=== PATIENT | male | born 1955 | race Caucasian/White ===

== ENCOUNTER 2016-07-14 07:34 | Day surgery (SDC) | payer OTHER ==
--- NOTE | ~2016-07-14 | EGD ---
EGD REPORT [facility] [address] [address] NAME: DESIRE VITALE : 51 STATUS : [place] [facility] PAT#: [id number] AGE: 61 ADM/REG DATE : 07/14/16 MR#: [id number] REPORT SERV DATE: 07/14/16 DICTATED BY: PRIYA OGDEN DATE: 07/14/16 REPORT STATUS : Draft TRANSCRIBED BY: [facility] DATE: 07/14/16 Endoscopy Center Patient Name: Desire Vitale Date of : 1955 Attending MD: PRIYA OGDEN MD Procedure Date No Time: 07/14/2016 Procedure: Colonoscopy Indications: High risk colon cancer surveillance: Personal history of colonic polyps, Last colonoscopy: 2013 Referring MD: Alicja IRWIN II Medicines: See the Anesthesia note for documentation of the administered medications Complications: No immediate complications. Procedure: Pre-Anesthesia Assessment: - ASA Grade Assessment: III - A patient with severe systemic disease. After I obtained informed consent, the scope was passed under direct vision. Throughout the procedure, the patient's blood pressure, pulse, and oxygen saturations were monitored continuously. The PCF [id number] was introduced through the anus and advanced to the ileocolonic anastomosis. The colonoscopy was performed without difficulty. The patient tolerated the procedure well. The quality of the bowel preparation was adequate. Findings: The perianal and digital rectal examinations were normal. Diverticula were found in the sigmoid colon. A sessile polyp was found in the transverse colon. The polyp was small in size. The polyp was removed with a cold biopsy forceps. Resection and retrieval were complete. A sessile polyp was found in the transverse colon. The polyp was 10 mm in size. The polyp was removed with a hot snare. Resection and retrieval were complete. A sessile polyp was found in the descending colon. The polyp was small in size. The polyp was removed with a cold biopsy forceps. Resection and retrieval were complete. A sessile polyp was found in the descending colon. The polyp was 10 mm in size. The polyp was removed with a hot snare. Resection and retrieval were complete. Impression: - Diverticulosis in the sigmoid colon. - One small polyp in the transverse colon. Resected and retrieved. - One 10 mm polyp in the transverse colon. Resected and EGD REPORT [place] [address] [facility] [place]. [address] NAME: DESIRE VITALE : [birth year] STATUS : REG [facility]#: [id number] AGE: 61 ADM/REG DATE : 07/14/16 MR#: [id number] REPORT SERV DATE: 07/14/16 DICTATED BY: PRIYA OGDEN DATE: 07/14/16 REPORT STATUS : Draft TRANSCRIBED BY: [facility] DATE: 07/14/16 retrieved. - One small polyp in the descending colon. Resected and retrieved. - One 10 mm polyp in the descending colon. Resected and retrieved. Recommendation: - Patient has a contact number available for emergencies. The signs and symptoms of potential delayed complications were discussed with the patient. Return to normal activities tomorrow. Written discharge instructions were provided to the patient. - Regular diet. - Continue present medications. - Repeat colonoscopy in 3 years for surveillance. - FOR YOUR BIOPSY RESULTS: Please go to [email or web address] and register to receive your results via the portal. Your biopsy results will be posted there in about 7 to 10 days. IF you do not see result in 10 days, call office. Procedure Code(s): --- Professional --- 86728, Colonoscopy, flexible, proximal to splenic flexure; with removal of tumor(s), polyp(s), or other lesion(s) by snare technique 17956, 59, Colonoscopy, flexible, proximal to splenic flexure; with biopsy, single or multiple Diagnosis Code(s): --- Professional --- K57.30, Diverticulosis of large intestine without perforation or abscess without bleeding D12.4, Benign neoplasm of descending colon D12.3, Benign neoplasm of transverse colon Z86.010, Personal history of colonic polyps CPT copyright 2013 [employer]. All rights reserved. The codes documented in this report are preliminary and upon regulator inspector review may be revised to meet current compliance requirements. Priya Ogden MD PRIYA OGDEN MD 07/14/2016 9:23 AM This report has been signed electronically. Number of Addenda: 0 EGD REPORT [address] [facility] [address] NAME: DESIRE VITALE : [birth year] [place]US : [place] [facility] PAT#: [id number] AGE: 61 ADM/REG DATE : 07/14/16 MR#: [id number] REPORT SERV DATE: 07/14/16 DICTATED BY: PRIYA OGDEN DATE: 07/14/16 REPORT STATUS : Draft TRANSCRIBED BY: [employer] DATE: 07/14/16 Note Initiated On: 07/14/2016 8:55 AM Scope Withdrawal Time 0 hours 13 minutes 35 seconds
[~2016-07-14 07:34] MED LIST: ADVAIR100 INH; ADVAIR250 INH; AMB10 PO; ASAB PO; BEN25 PO; COZAAR100 MG PO; ELIQUIS 5 MG TAB5 MG PO; HYDROCHLOROT25 MG PO; KLOR-CON 1010 MEQ PO; KLOR-CON M1010 MEQ PO; LAN125 PO; LOP25 PO; MICROZIDE PO; NASONEX NAS; NORCO1 TA1 PO; NORV10 PO; NORV5 PO; PRINZIDE1 TAB PO; PROAIR HFA INH; SPIRIVA INH; TIKOSYN 500 M500 MCG PO; TRANDAT100 PO; TUMSROLL PO; ULTRAM50 PO; VENTOLIN HFA INH; XOPENEX HFA INH; ZESTORETIC1 TAB PO
[2016-11-14] MEDS ORDERED: AMB10 PO (16:59)
[2016-11-14] MEDS ORDERED: TUMSROLL PO (17:00)
[2016-11-16] MEDS ORDERED: TOPXL50 PO (08:49)
[2016-11-16] MEDS ORDERED: IMDUR30 PO (08:49)
[2016-11-16] MEDS ORDERED: LIPITOR40 (08:51)
== END 2016-07-14 23:59 | disposition home health service (06) ==
LOC: DMU 07:34
PROVIDERS: Internal Medicine Gastroenterology
PROC: 0DBL8ZX Excision of Transverse Colon, Via Natural or Artificial Opening Endoscopic, Diagnostic (ICD-10-PCS; 2016-07-14)
PROC: 0DBM8ZZ Excision of Descending Colon, Via Natural or Artificial Opening Endoscopic (ICD-10-PCS; 2016-07-14)
PROC: 0DBL8ZZ Excision of Transverse Colon, Via Natural or Artificial Opening Endoscopic (ICD-10-PCS; 2016-07-14)
PROC: 0DBM8ZX Excision of Descending Colon, Via Natural or Artificial Opening Endoscopic, Diagnostic (ICD-10-PCS; principal; 2016-07-14 09:30)
DX: Z12.11 Encounter for screening for malignant neoplasm of colon (principal); D12.4 Benign neoplasm of descending colon; D12.3 Benign neoplasm of transverse colon; J44.9 Chronic obstructive pulmonary disease, unspecified; K57.30 Diverticulosis of large intestine without perforation or abscess without bleeding; I48.91 Unspecified atrial fibrillation; I10 Essential (primary) hypertension; Z86.010 Personal history of colon polyps; Z88.2 Allergy status to sulfonamides; Z79.82 Long term (current) use of aspirin; Z79.899 Other long term (current) drug therapy; Z87.891 Personal history of nicotine dependence; Z90.49 Acquired absence of other specified parts of digestive tract; Z98.890 Other specified postprocedural states
CPT/HCPCS: 88305

== ENCOUNTER 2016-07-21 16:00 | Observation (INO) | payer OTHER ==
--- NOTE | ~2016-07-21 | CN ---
Consultation Report [facility] [address] [place]. [address] NAME: DESIRE VITALE : 51 STATUS : ADM Elisha PAT#: [id number] AGE: 61 ADM/REG DATE : 07/21/16 MR#: [id number] REPORT SERV DATE: 07/22/16 DICTATED BY: PRESLEY DELCID DATE: 07/22/16 REPORT STATUS : Draft TRANSCRIBED BY: MODL DATE: 07/22/16 INPATIENT CONSULT NOTE DATE OF CONSULTATION: 07/22/2016 REASON FOR CONSULTATION: Bright red blood per rectum. HISTORY OF PRESENT ILLNESS: Mr. Vitale is a very pleasant 61-year-old male with no significant past medical history aside from atrial fibrillation, on Eliquis for anticoagulation, who underwent colonoscopy approximately one week ago and had resection of four polyps. The patient now presented to the emergency room with complaints of black stool that started on the day of admission. After his colonoscopy, he had had one episode of bloody stool, but then had normal brown stools for several days. Then on the day prior to admission, the patient noted he had a small amount of stringy red blood clot with his bowel movements and then on the day of consultation, the patient noted that he had dark black stool. No chest pain or shortness of breath. No presyncopal symptoms. No abdominal pain. No indigestion or GERD type symptoms. The patient presented to the emergency department for further evaluation and was noted to be heme positive with dark stools. He was also noted to have a hemoglobin of 16. REVIEW OF SYSTEMS: All systems reviewed and were negative aside from what was mentioned in history of present illness. PAST MEDICAL HISTORY: Includes: 1. Atrial fibrillation, on Eliquis and aspirin. 2. Hypertension. 3. COPD. 4. History of AAA. FAMILY HISTORY: The patient has no family history of GI related malignancy. SOCIAL HISTORY: The patient denies alcohol, tobacco, or illicit drug use. ALLERGIES: THE PATIENT HAS ALLERGIES TO SULFA MEDICATIONS. HOME MEDICATIONS: Include: 1. Tylenol. 2. Albuterol. 3. Norvasc. 4. Eliquis. 5. Aspirin 81 mg p.o. daily. 6. Tikosyn. 7. Advair. Consultation Report [facility] [address] [place]. [address] NAME: DESIRE VITALE : 51 STATUS : ADM Elisha PAT#: [id number] AGE: 61 ADM/REG DATE : 07/21/16 MR#: [id number] REPORT SERV DATE: 07/22/16 DICTATED BY: PRESLEY DELCID DATE: 07/22/16 REPORT STATUS : Draft TRANSCRIBED BY: YONI DATE: 07/22/16 8. Lopressor. 9. Potassium chloride. 10.Spiriva. PHYSICAL EXAMINATION: VITAL SIGNS: Most recent vital signs include a temperature of 98.3, pulse rate of 67, blood pressure is 162/99, saturating 94% on room air. GENERAL INSPECTION: Reveals an older male, lying in bed, in no apparent distress. HEENT: Head is normocephalic, atraumatic with normal inspection of the oral mucosa and posterior pharynx. Sclerae nonicteric. Pupils are equal and round. NECK: Supple without lymphadenopathy. HEART: Rate is regular with normal S1, S2. LUNGS: Sounds clear to auscultation bilaterally without wheezes, rales, or rhonchi. ABDOMEN: Soft, nontender, nondistended with normoactive bowel sounds. EXTREMITIES: The patient has no cyanosis, clubbing, or edema. SKIN: No jaundice or rash. NEURO: No gross motor deficits. He is alert and oriented. Mood and affect are appropriate. Judgment appears to be intact. LABORATORY DATA: Most recent laboratory results demonstrate a hemoglobin of 15.3 and a hematocrit of 45. Electrolyte panel shows normal BUN of 11, creatinine of 1.1. Normal electrolytes. No pertinent imaging to review. ASSESSMENT AND PLAN: Mr. Vitale is a very pleasant 61-year-old male with past medical history significant only for atrial fibrillation, on Eliquis and aspirin, who presented to the emergency department one week after colonoscopy with complaints of black stools. The patient's hemoglobin has been stable with no suggestion of significant GI bleeding. The patient's BUN is normal which argues against a significant amount of upper GI bleeding. Also, the patient's hemoglobin has been stable and is actually normal, and has fluctuated between 15 and 16. No need for upper endoscopic evaluation at this time, we would continue to monitor; however, if the patient continues to have a stable hemoglobin without signs of significant decrease over a 24 hour. The patient can be discharged to home and have follow up with either his primary care physician or his primary gastrologist, Dr. Oswaldo Ogden within the next one to two weeks to recheck his blood count again. Thank you very much for this interesting consult and allowing me to participate in Mr. Vitale's care. Please call with any questions or concerns or if the patient has suggestion of significant overt bleeding with drop in hemoglobin prior to his discharge. YOUNG/YONI Presley [place] Consultation Report [facility] [address] [facility] [place]. [address] NAME: DESIRE VITALE : 51 STATUS : ADM Elisha PAT#: [id number] AGE: 61 ADM/REG DATE : 07/21/16 MR#: [id number] REPORT SERV DATE: 07/22/16 DICTATED BY: PRESLEY DELCID DATE: 07/22/16 REPORT STATUS : Draft TRANSCRIBED BY: YONI DATE: 07/22/16 MD Anjum / [id number] CC: MD Alicja Holden
--- NOTE | ~2016-07-21 | DS ---
Discharge Summary [place] [id number] [facility] [place]. [address] NAME: DESIRE VITALE : 51 STATUS : DIS Elisha PAT#: [id number] AGE: 61 ADM/REG DATE : 07/21/16 MR#: [id number] REPORT SERV DATE: 07/22/16 DICTATED BY: MADDIE BLACKWELL DATE: 07/22/16 REPORT STATUS : Draft TRANSCRIBED BY: MODL DATE: 07/22/16 ADMISSION DATE: 07/21/2016 DISCHARGE DATE: 07/22/2016 REASON FOR ADMISSION: Black stool. HISTORY OF PRESENT ILLNESS: Please refer to Dr. Rojas' history and physical dated 07/21/2016 for complete details regarding the patient's admission. In brief, the patient was admitted to the Hospitalist Service for concern for post polypectomy and acute blood loss anemia. HOSPITAL COURSE: The patient had an uncomplicated hospital course. The patient had a colonoscopy with removal of a polyp by Dr. Ogden approximately a week ago. He presented with a tarry stool. Hemoglobin was checked and it was around 16. He was admitted to the Hospitalist Service under observation. Dr. Valero was consulted, recommended just checking serial H and Hs, and if it is stable, he is okay to go home, did not warrant any further scopes. The patient's hemoglobin was checked several times and had been stable at around 16. He is stable for discharge. DISCHARGE DIAGNOSES: 1. Postpolypectomy bleed, now resolved with acute blood loss. 2. Chronic obstructive pulmonary disease without exacerbation. 3. Hypertension. 4. Chronic atrial fibrillation, on chronic anticoagulation. 5. History of abdominal aortic aneurysm. PROCEDURES: Include consultation with Dr. aVlero. DISCHARGE MEDICATIONS: Include Tylenol p.r.n., albuterol p.r.n., Norvasc 10 mg daily, Eliquis 5 mg twice a day, aspirin 81 mg daily, Tikosyn 500 mg twice a day, Advair 250/50 one puff twice a day, Lopressor 25 mg twice a day, Klor-Con 10 mEq daily, and Spiriva daily. FOLLOWUP: The patient will follow up with Dr. Ogden as scheduled and Dr. Olsen. DICTATED BY: MD AISHWARYA Holden/YONI Maddie Blackwell MD / [id number] Discharge Summary [place] [address] [facility] [place] [address] NAME: DESIRE VITALE : 51 STATUS : DIS Elisha PAT#: [id number] AGE: 61 ADM/REG DATE : 07/21/16 MR#: [id number] REPORT SERV DATE: 07/22/16 DICTATED BY: MADDIE BLACKWELL DATE: 07/22/16 REPORT STATUS : Draft TRANSCRIBED BY: YONI DATE: 07/22/16 CC: MD lAicja Holden M.D.
--- NOTE | ~2016-07-21 | HP ---
History And Physical [place] [address] [place]. [address] NAME: DESIRE VITALE : 51 STATUS : ADM Elisha PAT#: [id number] AGE: 61 ADM/REG DATE : 07/21/16 MR#: [id number] REPORT SERV DATE: 07/21/16 DICTATED BY: MARSHALL MORIN DATE: 07/21/16 REPORT STATUS : Draft TRANSCRIBED BY: YONI DATE: 07/21/16 DATE OF ADMISSION: 07/21/2016 CHIEF COMPLAINT: Black stools. HISTORY OF PRESENT ILLNESS: This is a 61-year-old man with past medical history of chronic atrial fibrillation on anticoagulation with a recent polypectomy done about a week ago, comes in complaining of black stools that started on the day of admission. The patient does report some bright red blood per rectum when he wiped on the day prior to admission. The patient denies any abdominal pain, nausea, vomiting, diarrhea, hemoptysis, orthopnea, lower extremity swelling, slurred speech, localized weakness, dizziness, headache, fever, chills, or cough. The patient was evaluated in the emergency room, heme positive. A hemoglobin of 16. Hospitalist called for further inpatient management. ALLERGIES: SULFA. HOME MEDICATIONS: 1. Tylenol 1000 mg p.o. daily p.r.n. 2. Albuterol 1 puff inhaled t.i.d. daily p.r.n. 3. Norvasc 10 mg p.o. daily. 4. Eliquis 5 mg p.o. b.i.d. 5. Aspirin 81 mg p.o. daily. 6. Tikosyn 500 mcg p.o. b.i.d. 7. Advair Diskus 250/50 one puff b.i.d. 8. Lopressor 25 mg p.o. b.i.d. 9. Klor-Con 10 mEq p.o. daily. 10.Spiriva capsule inhaled daily. PAST MEDICAL HISTORY: 1. Significant for chronic atrial fibrillation on Eliquis, aspirin, and Tikosyn for rate control as well as Lopressor. 2. Hypertension. 3. COPD. 4. History of AAA. SOCIAL HISTORY: Denies any alcohol, tobacco, or illicit drug use. FAMILY HISTORY: Noncontributory. REVIEW OF SYSTEMS: Twelve point system reviewed, otherwise negative per HPI. PHYSICAL EXAMINATION: VITAL SIGNS: Temperature 97.2, heart rate 81, blood pressure 133/85, respiratory rate 16, and O2 saturation 95 on room air. GENERAL: No acute distress. History And Physical [address] [address] NAME: DESIRE VITALE : 51 STATUS : ADM Elisha PAT#: [id number] AGE: 61 ADM/REG DATE : 07/21/16 MR#: [id number] REPORT SERV DATE: 07/21/16 DICTATED BY: MARSHALL MORIN DATE: 07/21/16 REPORT STATUS : Draft TRANSCRIBED BY: YONI DATE: 07/21/16 HEENT: EOMI, PERRLA, nonicteric sclerae, nonerythematous pharynx. NECK: Supple. No JVD. No lymphadenopathy. RESPIRATORY: Clear to auscultation bilaterally. No wheezes, rhonchi, or crackles. CARDIOVASCULAR: Regular rate and rhythm. No murmurs, rubs, or gallops. ABDOMEN: Bowel sounds positive. Soft, nontender, and nondistended. No rebound or guarding. EXTREMITIES: No edema or cyanosis. NEUROLOGICAL: Nonfocal. LABORATORY DATA: WBC of 10.7, hemoglobin 16, hematocrit 47, and platelets 266. INR 1.2. Sodium 142, potassium 3.8, chloride 107, bicarb 30, BUN 13, and creatinine 1.18. ASSESSMENT: 1. Post polypectomy and acute blood loss with a stable H and H. 2. Chronic obstructive pulmonary disease without exacerbation. 3. Hypertension. 4. Chronic atrial fibrillation. 5. History of AAA. PLAN: The patient will be admitted to Observation Telemetry bed. Cycle H and H q.8 hours, consult Dr. Ogden. Hold Eliquis and aspirin for now. Restart other appropriate home medications. Transfuse to keep hemoglobin above 8. DVT prophylaxis, SCDs. GI prophylaxis, PPI. Further evaluation and management per clinical course. CODE STATUS: Full code. Total time for history and physical 35 minutes. VENICE/YONI Hien Rojas MD / [id number] CC: MD Alicja Rodriguez
[2016-07-21] MEDS ORDERED: ASA5GR PO (16:24)
[2016-07-21] MEDS ORDERED: ADVAIR250 INH (16:25)
[2016-07-21] MEDS ORDERED: SPIRIVA INH (16:25)
[2016-07-21] MEDS ORDERED: ACET500CAP PO (16:27)
[2016-07-21] MEDS ORDERED: ELIQUIS 5 MG TAB5 MG PO (16:29)
[2016-07-21] MEDS ORDERED: TIKOSYN500 MCG PO (16:29)
[2016-07-21] MEDS ORDERED: LOP25 PO (16:31)
[2016-07-21] MEDS ORDERED: KLOR-CON 1010 MEQ PO (16:32)
[2016-07-21] MEDS ORDERED: VENTOLIN HFA INH (16:33)
[2016-07-21] MEDS ORDERED: NORV10 PO (16:34)
[2016-07-21 16:39] LABS: BASOPHILS 0.4 %; BASOPHILS ABSOLUTE 0.04 10/3/uL (0.0-0.16); EOSINOPHILS 5.5 %; EOSINOPHILS ABSOLUTE 0.59 10/3/uL (0.0-0.53); IMMATURE GRANULOCYTES 0.4 %; IMMATURE GRANULOCYTES ABSOLUTE 0.04 10/3/uL (0.0-0.11); LYMPHOCYTES 21.9 %; LYMPHOCYTES ABSOLUTE 2.34 10/3/uL (0.67-4.30); MEAN CORPUSCULAR HEMOGLOB 30.9 pg (26.0-34.0); MEAN CORPUSCULAR VOLUME 90.9 fL (80-100); MEAN PLATELET VOLUME 10.2 fL (9.2-13.0); MONOCYTES 9.3 %; MONOCYTES ABSOLUTE 0.99 10/3/uL (0.21-1.20); NEUTROPHILS 62.5 %; NEUTROPHILS ABSOLUTE 6.69 10/3/uL (2.02-8.40); PLATELET COUNT 266 10/3/uL (150-400); RBC DISTRIBUTION WIDTH 13.1 % (12.0-16.0); RED CELL COUNT 5.17 10/6/uL (4.7-6.1); WHITE BLOOD CELLS 10.7 10/3/uL (4.5-10.5)
[2016-07-21 16:41] LABS: MANUAL DIFF NO %
[2016-07-21 16:52] LABS: A/G RATIO 0.9 (0.7-1.9); ALBUMIN 3.5 G/DL (3.5-5.0); ALKALINE PHOSPHATASE 75 U/L (45-117); BUN (BLOOD UREA NITROGEN) 13 MG/DL (6-23); CALCIUM, SERUM 8.9 MG/DL (8.5-10.4); CHLORIDE, SERUM 107 MMOL/L (96-112); CO2 (CARBON DIOXIDE) 30 MMOL/L (24-34); CREATININE 1.18 MG/DL (0.70-1.30); GFR AFRICAN AMERICAN 76 ML/MIN (>=60); GFR NON AFRICAN AMERICAN 65 ML/MIN (>=60); GLOBULIN 3.7 G/DL (2.5-4.1); GLUCOSE, SERUM 96 MG/DL (60-99); POTASSIUM, SERUM 3.8 MMOL/L (3.5-5.3); SGOT(AST) 20 U/L (5-40); SGPT(ALT) 23 U/L (5-65); SODIUM, SERUM 143 MMOL/L (135-148); TOTAL BILIRUBIN 0.3 MG/DL (0-1.2); TOTAL PROTEIN 7.2 G/DL (6.0-8.5)
[2016-07-21 16:55] LABS: INTERNATIONAL NORMAL RATI 1.2 UNITS (-); PARTIAL THROMBO TIME 32.6 SEC (22.5-37.2); PROTIME (NOT ORD) 15.3 SEC (12.0-14.5)
[2016-07-21 21:06] LABS: HEMATOCRIT 48.2 % (40.0-51.0); HEMOGLOBIN 16.4 g/dL (13.6-17.8)
[2016-07-22 04:34] LABS: ASCORBIC ACID (UR NOT ORDER) NEG (NEG); BILIRUBIN, URINE NEGATIVE (NEG); KETONE, URINE NEGATIVE (NEG); LEUKOCYTE ESTERASE(NOT OR NEG (NEG); WBC (NOT ORDERED) (RFLEX) 1 (0-5)
[2016-07-22 07:10] LABS: HEMATOCRIT 45.4 % (40.0-51.0); HEMOGLOBIN 15.3 g/dL (13.6-17.8)
[2016-07-22 07:14] LABS: BUN (BLOOD UREA NITROGEN) 11 MG/DL (6-23); CALCIUM, SERUM 9.3 MG/DL (8.5-10.4); CHLORIDE, SERUM 108 MMOL/L (96-112); CO2 (CARBON DIOXIDE) 27 MMOL/L (24-34); CREATININE 1.13 MG/DL (0.70-1.30); GFR AFRICAN AMERICAN 80 ML/MIN (>=60); GFR NON AFRICAN AMERICAN 69 ML/MIN (>=60); GLUCOSE, SERUM 92 MG/DL (60-99); POTASSIUM, SERUM 3.9 MMOL/L (3.5-5.3); SODIUM, SERUM 141 MMOL/L (135-148)
[2016-07-22 15:33] LABS: HEMATOCRIT 47.9 % (40.0-51.0); HEMOGLOBIN 16.4 g/dL (13.6-17.8)
[2016-11-14] MEDS ORDERED: AMB10 PO (16:59)
[2016-11-14] MEDS ORDERED: TUMSROLL PO (17:00)
[2016-11-16] MEDS ORDERED: TOPXL50 PO (08:49)
[2016-11-16] MEDS ORDERED: IMDUR30 PO (08:49)
[2016-11-16] MEDS ORDERED: LIPITOR40 (08:51)
== END 2016-07-22 16:21 | disposition home or self-care (01) ==
LOC: ER 16:00 → 5SO 18:19
PROVIDERS: Emergency Medicine; Internal Medicine
DX: K91.840 Postprocedural hemorrhage of a digestive system organ or structure following a digestive system procedure (principal); I48.2 Chronic atrial fibrillation; I10 Essential (primary) hypertension; I71.4 Abdominal aortic aneurysm, without rupture; J44.9 Chronic obstructive pulmonary disease, unspecified; Z86.010 Personal history of colon polyps; Z88.2 Allergy status to sulfonamides; Z79.01 Long term (current) use of anticoagulants; Z79.82 Long term (current) use of aspirin; Z79.51 Long term (current) use of inhaled steroids; Z79.899 Other long term (current) drug therapy
CPT/HCPCS: 36415; 80048; 80053; 81001; 83735; 85014; 85018; 85025; 85610; 85730; 86850; 86900; 86901; 86920; 94640; 96374; 96376; 99285; A9270-GY; C9113; G0378